=== PATIENT | female | born 1940 | race Caucasian/White ===

== ENCOUNTER → 2016-07-02 | Outpatient (CLI) | payer MEDICARE, BC ==
[2016-07-02 10:31] LABS: Blood Urea Nitrogen 19 mg/dL (7-17); Non-African American GFR(MDRD) >60 (>60 ml/min/1.73 sqM)
--- NOTE | 2016-07-02 11:20 | CT ---
EXAMINATION TYPE: CT angio chest DATE OF EXAM: 07/02/2016 11:09 AM COMPARISON: NONE HISTORY: Follow up aneurysm CT DLP: 780 mGycm Automated exposure control for dose reduction was used. CONTRAST: CTA scan of the thorax is performed with IV Contrast, patient injected with 100 mL of Omnipaque 350. The data was reformatted in axial, coronal and sagittal projections. Three-dimensional volume rendere d imaging was also performed on the CT scanner. FINDINGS: There is some apical scarring present bilaterally. There is mild, diffuse emphysematous changes throughout the lungs. There is mild chronic interstitial change in the right midlung posteriorly. No pulmonary nodules are identified. There is no significant axillary, internal mammary, mediastinal or hilar adenopathy. There is no pleu ral or pericardial fluid. There is a large hiatal hernia. There are the aorta is dilated measuring 4.8 cm. Previously this measured 4.2 cm. At the level of the proximal arch, the aorta measures 3.5 cm. Previously this measured 3.1 cm. The proximal descending thoracic aorta measures 2.5 cm. This is identical to previous. At the level o f the aortic hiatus, the aorta measures 2.4 cm. Previously this measured 2.2 cm. Visualized portions of the upper abdomen are unremarkable. There is some facet arthropathy in the lower lumbar facets. There has been a previous ACDF of the low er cervical spine. IMPRESSION: 1. SLIGHT ENLARGEMENT IN THE PATIENT'S KNOWN DESCENDING THORACIC AORTIC ANEURYSM. 2. DIFFUSE EMPHYSEMATOUS CHANGES THROUGHOUT THE LUNGS WITH MILD FIBROSIS. 3. LARGE HIATAL HERNIA.
== END | disposition home or self-care (01) ==
LOC: RADCTMAIN 09:44
PROVIDERS: ATTEND Internal Medicine Cardiovascular Disease
DX: I71.2 Thoracic aortic aneurysm, without rupture (principal); J43.9 Emphysema, unspecified; J84.10 Pulmonary fibrosis, unspecified; K44.9 Diaphragmatic hernia without obstruction or gangrene; I72.9 Aneurysm of unspecified site
CPT/HCPCS: 82565; 84520; 71275; 36415; Q9967

== ENCOUNTER 2016-08-27 09:05 | Day surgery (SDC) | payer MEDICARE, BC ==
[2016-08-26 07:50] VITALS: BMI 22.5
[~2016-08-27 09:05] MED LIST: ACETAMINOPHEN TAB 500 MG TAB PO ONE; CLINDAMYCIN 600 MG in DEXTROSE 5% IN WATER 50 ML IVPB ONE; DEXAMETHASONE SOD PHOSPHATE 10 MG/ML 1 ML VIAL IV ONE; DEXAMETHASONE SOD PHOSPHATE 4 MG/ML 1 ML VIAL IV ONE; FAMOTIDINE 20 MG/2 ML VIAL IV ONE; HYDROmorphone 1 MG/ML 1 ML SYRINGE IVP PRN; LACTATED RINGERS 1,000 ML IV SCH; ONDANSETRON 4 MG/2 ML VIAL IVP ONE
[2016-08-27 10:10] VITALS: TEMP 97.9
[2016-08-27] MEDS ORDERED: LIDOCAINE 1% 20 ML VIAL (10MG/ML) FOR IV START INTRADERMA ONE (10:10)
[2016-08-27] MEDS ORDERED: fentaNYL (PF) 50 MCG/ML 2 ML AMP ONE (11:19)
[2016-08-27] MEDS ORDERED: DEXAMETHASONE SOD PHOS (MDV) 100 MG/10 ML VIAL ONE (11:19)
[2016-08-27] MEDS ORDERED: PROPOFOL 10 MG/ML 20 ML VIAL IV ONE (11:19)
[2016-08-27] MEDS ORDERED: MIDAZOLAM 2 MG/2 ML VIAL ONE (11:19)
[2016-08-27] MEDS ORDERED: SODIUM BICARB 8.4% 50 ML VIAL (1 MEQ/ML) MISCELLANE ONE (11:51)
[2016-08-27] MEDS ORDERED: LIDOCAINE 1%-EPI 1:100,000 20 ML VIAL SQ ONE (11:51)
[2016-08-27 12:37] VITALS: PULSE 57
--- NOTE | 2016-08-27 12:57 | P.OP ---
Date of Procedure: 08/27/16 Preoperative Diagnosis: Right vocal cord paralysis right vocal cord paralysis Postoperative Diagnosis: Same Procedure(s) Performed: Right medialization laryngoplasty Laryngoscopy Anesthesia: MAC Surgeon: Sergio Crow Estimated Blood Loss (ml): 5 Pathology: none sent Condition: stable Disposition: PACU Indications for Procedure: This patient developed a right vocal cord paralysis and underwent a medialization laryngoplasty and had garners significant improvement in her voice. We inserted a #7 implant she developed some vocal cord atrophy over time now requiring a larger implant. She still has a much better voice now that she did previously but would like to have a bit more strength to her voice. All risks, benefits, and alternative therapies were discussed in detail. Consent was obtained and all questions were answered. We will attempt a larger implant. Operative Findings: A #10 implant was utilized which improved her voice Description of Procedure: This patient was taken to the operative room and placed in the supine position. IV sedation was administered to the patient through a functioning IV line and monitored throughout the entire case by the department of anesthesia. A direct microscopic laryngoscopy was performed with use of a Zeiss microscope. Direct visualization was performed. We found a-RIGHT VOCAL CORD PARALYSIS IN THE PARAMEDIAN POSITION. The neck was sterilely prepped and draped in usual fashion and the incision was marked. With use of lidocaine 1% with epinephrine 12 1000, the skin and deeper strap muscles were anesthetized. An incision was made over the lower portion of the thyroid cartilage horizontally in the neck. Hemostasis was obtained with use of electrocoagulation realizing a #12 setting without the flow of oxygen to prevent any fire risk. We dissected through the platysmas muscle to the strap muscles. We the strap muscles in the midline. We then exposed the thyroid cartilage the appropriate side of surgery. The old implant was removed. We then used with the sizer several different implants resistant to the voice and checked for stridor utilizing implants from #7-10. WE UTILIZED A #10 female GRANADOS IMPLANT ON THE RIGHT SIDE. This was secured into position in the usual fashion. We then irrigated and then closed the strap muscles with 4-0 Vicryl in an interrupted type fashion. The close the platysmas layer of 4-0 Vicryl in an interrupted type fashion. We then closed the deep subcutaneous tissue with 4-0 Monocryl in an interrupted type fashion. We then closed the skin with a 5-0 Prolene in a running nonlocking fashion. Bacitracin ointment and Telfa were applied along with a Medpor tape. The patient tolerated this well and the patient is to follow up with me in the office in 1 week. One week voice rest restrictions were given that her absolute area and no heavy lifting or bending. She was also advised that if any stridor should occur she should come to the emergency room. They have been given my cell phone number and contact information.
[2016-08-27 13:13] VITALS: BP 138/81; RESP 18
== END 2016-08-27 13:43 | disposition home or self-care (01) ==
LOC: OR 09:05
PROVIDERS: ATTEND Otolaryngology
DX: J38.01 Paralysis of vocal cords and larynx, unilateral (principal); I49.9 Cardiac arrhythmia, unspecified; M19.90 Unspecified osteoarthritis, unspecified site; J45.909 Unspecified asthma, uncomplicated; H40.9 Unspecified glaucoma; I10 Essential (primary) hypertension; E03.9 Hypothyroidism, unspecified; M06.9 Rheumatoid arthritis, unspecified; Z79.82 Long term (current) use of aspirin; Z79.2 Long term (current) use of antibiotics; Z79.51 Long term (current) use of inhaled steroids; Z79.899 Other long term (current) drug therapy; Z88.5 Allergy status to narcotic agent; Z88.0 Allergy status to penicillin; Z91.09 Other allergy status, other than to drugs and biological substances; Z87.891 Personal history of nicotine dependence
CPT/HCPCS: 31591; L8509; J2250; J1100 ×2; J2405; J3010; J2704

== ENCOUNTER → 2017-08-16 | Outpatient (CLI) | payer MEDICARE, BC ==
[2017-08-16 16:55] LABS: Anion Gap 13 mmol/L; Blood Urea Nitrogen 19 mg/dL (7-17); Calcium 10.1 mg/dL (8.4-10.2); Carbon Dioxide 29 mmol/L (22-30); Chloride 95 mmol/L (98-107); Glucose 93 mg/dL (74-99); Potassium 4.3 mmol/L (3.5-5.1); Sodium 137 mmol/L (137-145)
== END | disposition home or self-care (01) ==
LOC: LABWHC1 15:58
PROVIDERS: ATTEND Internal Medicine Cardiovascular Disease
DX: I10 Essential (primary) hypertension (principal)
CPT/HCPCS: 36415; 80048

== ENCOUNTER → 2017-08-23 | Outpatient (CLI) | payer MEDICARE, BC ==
[2017-08-23 11:55] LABS: Blood Urea Nitrogen 16 mg/dL (7-17)
--- NOTE | 2017-08-23 13:38 | CT ---
EXAMINATION TYPE: CT chest w con DATE OF EXAM: 08/23/2017 COMPARISON: NONE HISTORY: Follow Up Aneurysm CT DLP: 480 mGycm Automated exposure control for dose reduction was used. CONTRAST: CT scan of the chest is performed with IV Contrast, patient injected with 100 mL of Isovue 300. FINDINGS: LUNGS: The lungs are grossly clear, there is no concerning parenchymal mass or nodule identified. Int erstitial changes are again noted, minimal honeycombing present bilaterally at posterior aspect of th e lungs There is no pleural effusion or pneumothorax seen. The tracheobronchial tree is patent. MEDIASTINUM: There are no greater than 1 cm hilar or mediastinal lymph nodes. No pericardial effusi on is seen. AORTA: Ascending aorta measures approximately 4.5 cm, proximal descending aorta measures 2.6 cm. The re is a left arch with aberrant right subclavian artery. No evident dissection. Coronary calcificatio ns are present. Aorta measures 2.3 cm at the level of the hiatus. Mild pectus deformity noted. OTHER: Partial intrathoracic stomach is noted, there is hiatal hernia. There is a spinal curvature. Compression deformity noted at T12. There is a pectus deformity. IMPRESSION: Normal variant anatomy, ascending aortic aneurysm. Interstitial lung disease. Hiatal her chet.
== END | disposition home or self-care (01) ==
LOC: RADCTMAIN 11:26
PROVIDERS: ATTEND Internal Medicine Cardiovascular Disease
DX: J84.9 Interstitial pulmonary disease, unspecified (principal); I71.2 Thoracic aortic aneurysm, without rupture; Z13.89 Encounter for screening for other disorder
CPT/HCPCS: 82565; 84520; 71260; 36415; Q9967

== ENCOUNTER → 2018-03-08 | Outpatient (CLI) | payer MEDICARE, BC ==
--- NOTE | 2018-03-09 07:41 | MR ---
EXAMINATION TYPE: MR brain and iac wo/w con DATE OF EXAM: 03/08/2018 COMPARISON: NONE HISTORY: Acoustic neuroma, left hearing loss TECHNIQUE: Multiplanar, multisequence images of the brain and brainstem is performed without and with IV contras t, utilizing 7 mL intravenous Gadavist . FINDINGS: Diffusion weighted images demonstrate no evidence of a recent infarct or other diffusion ab normality. There is no extra-axial fluid collection. Moderate burden T2/FLAIR hyperintense foci are scattered throughout the periventricular and subcortical white matter with the largest seen in the ri ght frontal lobe on FLAIR fat sat axial image 15 measuring 8 x 6 mm. No abnormal enhancement is seen of these white matter changes. More subtle pontine T2/FLAIR hyperintense foci are also seen represent ing mild scoliosis. Cerebellar tonsils are noted to be low-lying. The ventricular system and cisterna l spaces are normal in size and appearance. The brain volume is age appropriate. Midline structures demonstrate normal morphology. The craniocervical junction appears within normal limits. Post contrast images demonstrate no abnormal enhancement. The dural venous sinuses appear pa tent. Globes are intact. There is scant mucosal thickening in the ethmoid sinuses and partial opacifi cation of the left mastoid air cells. There is no cerebellar pontine angle mass. No basilar artery aneurysm is seen. The 7th and 8th crania l nerves are unremarkable enhancement and coarse. No intra or extra canalicular mass is seen along th e 7th or 8th cranial nerves. As stated above there is partial opacification of the left mastoid air c ells. There is also a small amount of fluid within the left middle ear cavity. IMPRESSION: 1. There is partial opacification of the left mastoid air cells and left middle ear cavity fluid sugg esting otomastoiditis, which may account for the patient's left-sided hearing loss. 2. No abnormal enhancement of the 7th or 8th cranial nerves to indicate neuritis or acoustic neuroma. 3. Moderate burden nonspecific white matter change most commonly on the basis of chronic microangiopa thy. 4. No abnormal intracranial enhancement to suggest intracranial mass.
== END | disposition home or self-care (01) ==
LOC: RADMRIMAIN 09:14
PROVIDERS: ATTEND Otolaryngology Otology & Neurotology
DX: I67.9 Cerebrovascular disease, unspecified (principal)
CPT/HCPCS: 82565; 84520; 70553; 36415; A9585

== ENCOUNTER → 2018-04-28 | Outpatient (CLI) | payer MEDICARE, BC ==
--- NOTE | 2018-04-28 10:45 | CT ---
EXAMINATION TYPE: CT chest w con DATE OF EXAM: 04/28/2018 COMPARISON: 08/23/2017 HISTORY: Follow up scan per patient. No complaints at time of scan CT DLP: 188.3 mGycm, Automated exposure control for dose reduction was used. CONTRAST: Performed injected with 100 mL of Isovue 300. TECHNIQUE: Axial images were obtained at 5 mm thick sections. Reconstructed images are reviewed on [email or web address] computer in the coronal plane. FINDINGS: Portion of the thyroid visualized is normal. The right subclavian artery from the aortic arch is posterior to the esophagus. Some minimal pneumonitis changes are at the lung apices. Some scarring may be present. Mild pulmonary fibrosis is within the dependent portions of the lungs. Paraseptal emphysematous change could be wit hin. No enlarged mediastinal or hilar adenopathy is evident. The ascending aorta diameter at the level o f the main pulmonary artery is 3.9 cm. The main pulmonary artery diameter at the bifurcation is 2.7 cm. Coronary artery calcification is present. Aortic root measures 3.9 cm. The aorta at the proximal arch measures 3.0 cm. The ascending thoracic aorta measures 2.7 cm. Previous aneurysmal measurements. This exam Limited CT sections are obtained through the upper abdomen. There is a moderate-sized hiatal hernia p resent IMPRESSIONS: 1. No acute pulmonary process. 2. Dilated ascending thoracic aorta. Maximum dimension on the current examination is 3.9 cm.
== END | disposition home or self-care (01) ==
LOC: RADCTMAIN 08:07
PROVIDERS: ATTEND Internal Medicine Cardiovascular Disease
DX: I77.810 Thoracic aortic ectasia (principal)
CPT/HCPCS: 82565; 84520; 71260; 36415; Q9967

== ENCOUNTER → 2019-02-21 | Outpatient (CLI) | payer MEDICARE, BC ==
[~2019-02-21] MED LIST changes: +ACETAMINOPHEN TAB 500 MG TAB PO NR; -ACETAMINOPHEN TAB 500 MG TAB PO ONE; -CLINDAMYCIN 600 MG in DEXTROSE 5% IN WATER 50 ML IVPB ONE; -DEXAMETHASONE SOD PHOSPHATE 10 MG/ML 1 ML VIAL IV ONE; -DEXAMETHASONE SOD PHOSPHATE 4 MG/ML 1 ML VIAL IV ONE; -FAMOTIDINE 20 MG/2 ML VIAL IV ONE; -HYDROmorphone 1 MG/ML 1 ML SYRINGE IVP PRN; -LACTATED RINGERS 1,000 ML IV SCH; -ONDANSETRON 4 MG/2 ML VIAL IVP ONE; +SODIUM CHLORIDE 0.9% 500 ML 500 ML in EMPTY BAG 1 BAG IV PRN; +diphenhydrAMINE 25 MG CAP PO NR; +diphenhydrAMINE 50 MG/ML 1 ML VIAL IVP NR; +methylPREDNISolone SOD SUCCI 125 MG/2 ML VIAL IVP NR
[2019-02-21 09:30] VITALS: RESP 16; TEMP 98.4
[2019-02-21 11:43] VITALS: BP 124/77; PULSE 46
== END | disposition home or self-care (01) ==
LOC: PROCWHC3 09:06
PROVIDERS: ATTEND Internal Medicine Rheumatology
DX: M06.89 Other specified rheumatoid arthritis, multiple sites (principal); Z88.0 Allergy status to penicillin; Z88.5 Allergy status to narcotic agent; Z91.041 Radiographic dye allergy status
CPT/HCPCS: 96375; 96413; 96415; J2930; J9312

== ENCOUNTER → 2020-01-16 | Outpatient (CLI) | payer MEDICARE, BC ==
--- NOTE | 2020-01-16 15:14 | CT ---
EXAMINATION TYPE: CT angio chest DATE OF EXAM: 01/16/2020 COMPARISON: 04/28/2013 HISTORY: 79-year-old female Follow up for thoracic aortic aneurysm. TECHNIQUE: Contiguous axial scanning of the chest performed without and with IV Contrast, patient inj ected with 100ml mL of Isovue 370. Coronal/sagittal MIP reconstructions performed. 3-D reconstruction s generated on a dedicated independent workstation. CT DLP: 463 mGycm Automated exposure control for dose reduction was used. FINDINGS: Heart is normal size with mild coronary artery calcifications. No pericardial effusion. Ectatic aortic root at 3.7 cm, unchanged. Midascending aorta aneurysmal 4.5 cm versus 4.2 cm, previously. Upper ascending aorta aneurysmal at 4.5 cm, unchanged. Proximal articulating of 3.7 cm, unchanged. Mild atherosclerotic arch calcifications with aberrant right subclavian artery that takes irregular e sophageal course. Upper descending thoracic aorta normal caliber at 2.7 cm. Mild tortuosity of the descending thoracic aorta. Distal caliber of 2.0 cm, unchanged. No evidence for acute intramural hematoma or aortic dissection. Borderline sized caliber to the main right and left pulmonary arteries are 2.5 cm. No thoracic lymphadenopathy by CT size criteria. Peripheral nodular infiltrates right greater than left lung especially in the upper lobes. Some of th fabio densities have a tree-in-bud appearance. Nodules measure up to 7 mm. No pleural effusion. Moderate size hiatal hernia containing approximately two thirds of the stomach. Moderate atherosclero tic calcifications visualized upper to mid abdominal aorta. Bones: Dextroconvex curvature. Mild superior endplate deformity of T12 is unchanged compatible with a chronic injury. ACDF hardware. IMPRESSION: 1. MID ASCENDING AORTIC ANEURYSM INCREASED AT 4.5 CM VERSUS 4.2 CM, PREVIOUSLY. UPPER ASCENDING AORTI C ANEURYSM UNCHANGED AT 4.5 CM. AORTIC ROOT REMAINS ECTATIC AT 3.7 CM. 2. NOTE: ABERRANT RIGHT SUBCLAVIAN ARTERY THAT TAKES A RETROESOPHAGEAL COURSE. 3. NEW RIGHT GREATER THAN LEFT NODULAR INFILTRATES. INDIVIDUAL NODULES MEASURE UP TO 7 MM. SOME OF TH FABIO SHOW A TREE-IN-BUD APPEARANCE. CORRELATE FOR POSSIBLE ATYPICAL INFECTIONS, SUBACUTE HYPERSENSITIV ITY PNEUMONITIS, BRONCHIOLITIS, AND CHRONIC ASPIRATION. THREE-MONTH FOLLOW-UP RECOMMENDED AFTER ANY P OTENTIAL TREATMENT. 4. POSSIBLE UNDERLYING PULMONARY ARTERIAL HYPERTENSION. 5. MODERATE SIZE HIATAL HERNIA CONTAINING APPROXIMATELY TWO THIRDS OF THE STOMACH.
== END | disposition home or self-care (01) ==
LOC: RADCTMAIN 12:42
PROVIDERS: ATTEND Internal Medicine Cardiovascular Disease
DX: I71.2 Thoracic aortic aneurysm, without rupture (principal); Q27.8 Other specified congenital malformations of peripheral vascular system; R91.8 Other nonspecific abnormal finding of lung field; K44.9 Diaphragmatic hernia without obstruction or gangrene; Z88.0 Allergy status to penicillin; Z88.5 Allergy status to narcotic agent
CPT/HCPCS: 82565; 84520; 71275; 36415; Q9967

== ENCOUNTER → 2020-05-02 | Outpatient (CLI) | payer MEDICARE, BC ==
--- NOTE | 2020-05-02 12:39 | CT ---
EXAMINATION TYPE: CT chest w con DATE OF EXAM: 05/02/2020 COMPARISON: 01/16/2020 HISTORY: Lung Nodule CT DLP: 143.1 mGycm, Automated exposure control for dose reduction was used. CONTRAST: Performed injected with 100 ml mL of Isovue 300. TECHNIQUE: Axial images were obtained at 5 mm thick sections. Reconstructed images are reviewed on [employer] computer in the coronal plane. FINDINGS: Portion of the thyroid visualized is normal. Multiple these all nodules are within the periphery of the right midlung measuring approximately 0.4 cm. Some dependent infiltrate is present in the right lung base. No enlarged mediastinal or hilar adenopathy is evident. The ascending aorta diameter at the level o f the main pulmonary artery is 4.4 cm. The main pulmonary artery diameter at the bifurcation is 3.1 cm. Vascular calcifications within the coronary vessels. There is a retrocrural esophageal right subclavian artery variant. Limited CT sections are obtained through the upper abdomen. There is a moderate size hiatal hernia. IMPRESSIONS: 1. Right subclavian vein posterior to the esophagus. 2. Multiple peripheral right lung nodules. Present on January 2020 exam
== END | disposition home or self-care (01) ==
LOC: RADCTMAIN 09:49
PROVIDERS: ATTEND Internal Medicine Critical Care Medicine
DX: R91.8 Other nonspecific abnormal finding of lung field (principal); R91.1 Solitary pulmonary nodule; Z88.5 Allergy status to narcotic agent; Z88.0 Allergy status to penicillin
CPT/HCPCS: 82565; 84520; 71260; 36415; Q9967

== ENCOUNTER → 2021-01-22 | Outpatient (CLI) | payer MEDICARE, BC ==
--- NOTE | 2021-01-22 18:38 | CT ---
CT CHEST FOR PULMONARY EMBOLISM. EXAMINATION TYPE: CT angio chest DATE OF EXAM: 01/22/2021 INDICATION: follow up thoracic aortic aneurysm CT DLP: 479 mGycm, Automated exposure control for dose reduction was used. CONTRAST: Patient injected with 100 mL of Isovue 370. COMPARISON: 05/02/2020 TECHNIQUE: CT of the chest is performed on a spiral scan at 2 mm thick sections. Study is performed with intravenous contrast timed for evaluation for thoracic aneurysm. This will limit additional por tions of the evaluation. 3-D MIP images reconstructed by the technologist are reviewed on the comput er in the coronal and sagittal planes. 3-D reconstructed images performed by the technologist are rev iewed. Images are rotated on the computer. FINDINGS: No persistent filling defects are evident to suggest an acute pulmonary embolism. No mediastinal or hilar adenopathy enlarged by CT criteria is evident. The aortic arch at the aortic root is 3.6 cm. The ascending thoracic aorta at the main pulmonary eagle ry is 4.4 cm. The main pulmonary artery diameter at the bifurcation is 3.0 cm. The thoracic aorta at the arch measures 3.0 cm. There is an 8 barren course of the right subclavian artery posterior to the esophagus and trachea from the aortic arch. The descending thoracic aorta appears normal. Multiple peripheral nodules are within the right lateral and posterior lung field. No enlarging nodul es are evident. Limited CT section through the upper abdomen. Moderate size hiatal hernia is present. IMPRESSIONS: 1. Ascending thoracic aorta is stable at 4.4 cm. 2. 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 3. Multiple peripheral right upper peripheral nodules, stable from comparison
== END | disposition home or self-care (01) ==
LOC: RADCTMAIN 10:47
PROVIDERS: ATTEND Surgery
DX: I71.2 Thoracic aortic aneurysm, without rupture (principal)
CPT/HCPCS: 82565; 84520; 71275; 36415; Q9967

== ENCOUNTER → 2022-12-14 | Outpatient (CLI) | payer MEDICARE, BC ==
--- NOTE | 2022-12-15 10:31 | BD ---
EXAMINATION TYPE: Axial Bone Density DATE OF EXAM: 12/14/2022 CLINICAL HISTORY: 82 years old Female. ICD-10 CODE: M81.0 AGE RELATED OSTEOPOROSIS Height: 65 Weight: 134.1 FRAX RISK QUESTIONS: Alcohol (3 or more units per day): no Family History (Parent hip fracture): no Glucocorticoids (More than 3mos): no). History of Fracture in Adulthood: Ankle Secondary Osteoporosis: 1. Type 1 Diabetes: no 2. Hyperthyroidism: no 3. Menopause before 45: no 4. Malnutrition: no 5. Chronic liver disease: no Rheumatoid Arthritis: yes Current Tobacco Use: no RISK FACTORS HISTORY OF: Hip Fracture (Right/Left): no When: Spine Fracture: no When: History of Wrist Fracture: Lt wrist When: Age 76 Surgery to Spine/Hip(right/left)/Wrist (right/left): no Family History of Osteoporosis: no Active: no Diet low in dairy products/other sources of calcium: somewhat Postmenopausal woman: yes Take estrogen and/or progesterone medications: no Lost more than 2 inches in height since high school: yes Frequent falls: no Poor Health: no Hyperparathyroidism: no Adrenal Insufficiency: no MEDICATIONS: Prednisone or other steroids: no Thyroid Medications: Synthroid How Long: past 40 years Osteoporosis Medications: Prolia every 6 months How Long: past 4 years Additional Medications: BP Meds, Calcium, Vit D, Rituxan (every 6 moths) Additional History: EXAM MEASUREMENTS: Bone mineral densitometry was performed using the [employer] System. Bone mineral density as measured about the Lumbar spine is: ----- L1-L4(G/cm2): 1.012 T Score Values are as follows: ----- L1: -1.0 ----- L2: -1.5 ----- L3: -2.3 ----- L4: -1.0 ----- L1-L4: -1.4 Z Score Values are as follows: ----- L1: 1.0 ----- L2 0.5 ----- L3: -0.3 ----- L4: 1.0 ----- L1-L4: 0.6 Baseline Study Bone mineral density about the R hip (g/cm2): 0.872 Bone mineral density about the L hip (g/cm2): 0.822 T Score values are as follows: -----R Neck: -1.9 -----L Neck: -2.0 -----R Total: -1.1 -----L Total: -1.5 Z Score values are as follows: -----R Neck: 0.5 -----L Neck: 0.4 -----R Total: 1.2 -----L Total: 0.9 Baseline Study FRAX%s: The graph provided illustrates a 26.7% chance for a major osteoporotic fx and a 8.8% chance f or the hips probability for fx in 10 years time. IMPRESSION: Osteopenia (T Score between -2.5 and -1). There is slightly increased risk of fracture and the patient may be considered for treatment. Re-Screen 2-5 years. NOTE: T-SCORE=SD OF THE YOUNG ADULT MEAN.
== END | disposition home or self-care (01) ==
LOC: RADBDWWP 11:19
PROVIDERS: ATTEND Internal Medicine Rheumatology
DX: M81.0 Age-related osteoporosis without current pathological fracture (principal); M85.89 Other specified disorders of bone density and structure, multiple sites
CPT/HCPCS: 77080

== ENCOUNTER → 2023-07-08 | Outpatient (CLI) | payer MEDICARE, BC ==
[2023-07-08 13:42] LABS: ALT 16 U/L (4-34); AST 26 U/L (14-36); African American GFR (CKD) >90 (>60 ml/min/1.73 sqM); Albumin 4.1 g/dL (3.5-5.0); Albumin/Globulin Ratio 1.3; Alkaline Phosphatase 49 U/L (38-126); Anion Gap 7 mmol/L; Blood Urea Nitrogen 13 mg/dL (7-17); Calcium 9.3 mg/dL (8.4-10.2); Carbon Dioxide 27 mmol/L (22-30); Chloride 98 mmol/L (98-107); Globulin 3.1 g/dL; Glucose 96 mg/dL (74-99); Non-African American GFR(CKD) 84 (>60 ml/min/1.73 sqM); Potassium 4.3 mmol/L (3.5-5.1); Sodium 132 mmol/L (137-145); Total Bilirubin 0.7 mg/dL (0.2-1.3); Total Protein 7.2 g/dL (6.3-8.2)
--- NOTE | 2023-07-08 15:02 | CT ---
Exam: CT Chest with contrast. Date: 07/08/2023. Comparison: None History: Solitary pulmonary nodule. Technique: CT examination of the chest was performed following the intravenous administration of 100 mL of Isovue-300. Coronal and sagittal reformats were performed. CT dose lowering techniques were us ed, to include: automated exposure control, adjustment for patient size, and/or use of iterative raffaele nstruction. FINDINGS: Mediastinum and Pili: There is no axillary, mediastinal or hilar lymphadenopathy. Pleural and Pericardial spaces: There are no pleural or pericardial effusions. Upper Abdomen: There is a moderate sized sliding hiatal hernia. Cardiovascular: Dilation of the ascending thoracic aorta up to 4.7 cm in diameter is unchanged. There is no evidence of aortic dissection. Incidental note is made of an aberrant right subclavian artery. Mild vascular calcification is seen in the aortic arch. There is moderate diffuse coronary artery ca lcifications. Pulmonary Artery: There are no central pulmonary arterial abnormalities. The examination was not per formed to evaluate for pulmonary embolism. Lung Parenchyma and Airways: There is scattered areas of pulmonary nodularity seen throughout the chano gs bilaterally which are likely similar to the previous examination. There are tree-in-bud areas of n odularity also seen which are likely related to an inflammatory or atypical infectious process is wel l. Underlying malignancy is difficult to exclude. There is scattered bronchial wall thickening and ar eas of mucus plugging. The new area of nodularity measuring approximately 9.7 mm in the left upper lo be on series 4 image 33. Bones: No fracture or aggressive osseous lesion. IMPRESSION: 1. New 9.7 mm nodule in the left upper lobe potentially represent malignancy and a PET CT is recommen ded for further evaluation. 2. Additional areas of nodularity as well as tree-in-bud nodularity are similar to the previous exami nation may relate to a waxing and waning inflammatory or atypical infectious process. 3. Unchanged ascending thoracic aortic aneurysm. 4. Coronary artery calcifications. 5. Moderate hiatal hernia.
== END | disposition home or self-care (01) ==
LOC: RADCTMAIN 12:35
PROVIDERS: ATTEND Internal Medicine Rheumatology
DX: I71.21 Aneurysm of the ascending aorta, without rupture (principal); I25.10 Atherosclerotic heart disease of native coronary artery without angina pectoris; K44.9 Diaphragmatic hernia without obstruction or gangrene; R79.89 Other specified abnormal findings of blood chemistry; R91.1 Solitary pulmonary nodule; R93.89 Abnormal findings on diagnostic imaging of other specified body structures
CPT/HCPCS: 80053; 71260; 36415; Q9967

== ENCOUNTER → 2023-08-06 | Outpatient (CLI) | payer MEDICARE, BC ==
--- NOTE | 2023-08-08 04:49 | PE ---
EXAMINATION TYPE: PET CT fusion skull to thigh DATE OF EXAM: 08/06/2023 COMPARISON: Prior PET/CT 2010. Prior chest CT July 08, 2023 and older CTs HISTORY: Solitary pulmonary nodule. TECHNIQUE: Following the intravenous administration of 7.7 mCi of F-18 FDG, whole body images are pe rformed from the skull base to the midthigh. Images are reviewed on the computer in the coronal, axi al, and sagittal planes. Reconstructed rotating images are created on independent workstation and re viewed on the computer. A localization and attenuation correction CT is performed in conjunction wi th the PET scan. Blood glucose level equals 89. SCAN: Initial Scan FINDINGS: SKULL BASE AND NECK: No areas of suspicious abnormal hypermetabolic uptake CHEST, MEDIASTINUM, AND HILAR REGION: Scattered small nodules bilaterally are redemonstrated involvin g both upper and lower lungs. Several have Abnormal hypermetabolic uptake. For reference there is 8 t o 9 mm peripheral nodule or nodular consolidation posterior right mid lung axial image 107 with max S UV of 6.1. There is hypermetabolic 5 mm anterior right upper lobe nodule axial image 79, max SUV is 8 .5 to. Max SUV in the left lung on axial image 100 corresponding to a subcentimeter nodule is 7.26s. No hypermetabolic mediastinal lymph nodes. ABDOMEN AND PELVIS: Normal excretion. No hypermetabolic adrenal masses. OSSEOUS STRUCTURES: No hypermetabolic focal osseous lesions. OTHER CT: Ascending aortic aneurysm up to 4.9 cm is redemonstrated. Mild to moderate calcified plaque bilateral carotid bulb level. Moderate to severe three-vessel coronary artery calcification. Moderat e to large size hiatal hernia redemonstrated. Atherosclerotic and ectatic abdominal aorta. Sigmoid co lonic diverticula in the left pelvis. Levoconvex scoliosis centered at L3 level. Multilevel disc spac e narrowing in the lumbar spine. IMPRESSION: Scattered mildly hypermetabolic subcentimeter pulmonary nodules. Differential includes me tastatic disease versus infectious and/or inflammatory process. Former needs to be strongly considere d.
== END | disposition home or self-care (01) ==
LOC: RADPETMAIN 08:29
PROVIDERS: ATTEND Internal Medicine Rheumatology
DX: R91.8 Other nonspecific abnormal finding of lung field (principal)
CPT/HCPCS: 78815; A9552

== ENCOUNTER → 2023-10-04 | Outpatient (CLI) | payer MEDICARE, BC ==
[2023-10-04 15:34] LABS: ALT 16 U/L (8-44); AST 21 U/L (13-35); Chol/HDL Ratio 2.12 Ratio; VLDL Calculation 18.48 mg/dL (5.00-40.00)
== END | disposition home or self-care (01) ==
LOC: LABWHC1 10:43
PROVIDERS: ATTEND Internal Medicine Cardiovascular Disease
DX: E78.2 Mixed hyperlipidemia (principal)
CPT/HCPCS: 36415; 80061; 84450; 84460

== ENCOUNTER → 2024-03-21 | Outpatient (CLI) | payer MEDICARE, BC ==
[2024-03-21 15:22] LABS: ALT 17 U/L (8-44); AST 21 U/L (13-35); Chol/HDL Ratio 1.95 Ratio; LDL Cholesterol,Calculated 46.8 mg/dL (0.0-131.0); VLDL Calculation 14.54 mg/dL (5.00-40.00)
== END | disposition home or self-care (01) ==
LOC: LABWHC1 09:53
PROVIDERS: ATTEND Internal Medicine Cardiovascular Disease
DX: E78.2 Mixed hyperlipidemia (principal)
CPT/HCPCS: 36415; 80061; 84450; 84460

== ENCOUNTER → 2024-07-24 | Outpatient (CLI) | payer MEDICARE, BC ==
--- NOTE | 2024-07-24 13:19 | CT ---
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 Sagittal and coronal reformats were created for review. MIP was performed on a separate workstation. Contrast used: mL of (None if empty) Oral contrast used: (None if empty) CT DLP: 244 mGycm, Automated exposure control for dose reduction was used. FINDINGS: LUNGS/ PLEURA: No focal consolidation, pneumothorax or pleural effusion. Scattered peripheral nodular densities throughout the lungs most pronounced in the posterior right lower lobe also involving tree -in-bud opacities throughout the upper lung some of which are more prominent than others. AIRWAY: A few opacified large airways seen likely representing some of the findings in the lungs of n odular-like densities. HEART: Size within normal limits. Severe coronary artery calcifications present. MEDIASTINUM: No gross evidence of adenopathy. VASCULATURE: Ascending thoracic aorta ectasia up to 47 x 49 mm which is borderline aneurysmal dilatio n. The right subclavian artery courses posterior to the esophagus. Atherosclerosis of the arterial va sculature MUSCULOSKELETAL: Moderate disc degeneration changes are present throughout the thoracolumbar spine se condary to osteophyte formation and facet joint arthropathy. Compression deformity to the T12 vertebr al body is not significant change and 25% height loss. No significant retropulsion. SOFT TISSUES/LYMPH NODES: Unremarkable. LOWER NECK: No significant findings. UPPER ABDOMEN: 71 scattered colonic diverticula the upper abdomen. IMPRESSION: 1. Similar ascending thoracic aorta ectasia up to 47 x 48 mm compared to 07/08/2023. 2. Aberrant origin of the right subclavian artery. 3. Scattered tree-in-bud opacities some which may be opacified large airways in setting of bronchiec tasis with mucus plugging. Throughout the lungs which appear more prominent compared to prior. Correl ate for bronchiolitis/infectious/inflammatory process. Close surveillance recommended. 4. Severe coronary artery atherosclerosis. Follow up recommendations for incidental pulmonary nodules, if there are any, are per [employer] or [employer]. https://radiopaedia.org/articles/[email or web address]?lang=us [email or web address], , 07/24/2024 1:17 PM
== END | disposition home or self-care (01) ==
LOC: RADCTMAIN 10:48
PROVIDERS: ATTEND Surgery
DX: I77.810 Thoracic aortic ectasia (principal); I25.10 Atherosclerotic heart disease of native coronary artery without angina pectoris; R91.8 Other nonspecific abnormal finding of lung field; Q25.48 Anomalous origin of subclavian artery
CPT/HCPCS: 71250